=== PATIENT | male | born 1950 | race Caucasian/White ===

== ENCOUNTER 2018-08-13 15:42 | Emergency (ER) | payer MEDICARE, BC ==
[2018-08-13 15:55] VITALS: BP 115/78
[2018-08-13] MEDS ORDERED: Diltiazem 50 MG/10 ML SDV IVPUSH STA (16:33)
[2018-08-13] MEDS ORDERED: Rivaroxaban 10 MG Tab PO STA (16:35)
--- NOTE | 2018-08-13 16:38 | EDM.PDOC ---
ED HPI GENERAL MEDICAL PROBLEM - General Chief Complaint: Chest Pain Stated Complaint: TIGHTNESS IN CHEST Time Seen by Provider: 08/13/18 16:18 Source of Information: Reports: Patient, RN Notes Reviewed History Limitations: Reports: No Limitations - History of Present Illness INITIAL COMMENTS - FREE TEXT/NARRATIVE: The patient states that he has been experiencing chest tightness and dyspnea on and off since Sunday morning, 08/11/2018. He reports palpitations, sensing that his heart has been going faster, them returning to normal, then going faster, etc. He has felt diaphoretic, but denies associated nausea or sense of impending doom. No orthopnea. No recent cough. No recent fever, however, he states that he felt chilled last night. The patient states that his symptoms are similar, although not exactly the same , as when he had atrial fibrillation twice in 2016. At the time, his atrial fibrillation was thought to be due to hyperthyroidism. He received I-131 treatment, causing him to become hypothyroid, for which he now takes levothyroxine. The patient's PCP is Dr. Nance. Chest Pain Score (Numeric/FACES): 5 - Related Data Allergies Allergy/AdvReac Type Severity Reaction Status Date / Time morphine Allergy Confusion Verified 12/22/15 01:05 Home Meds: Home Meds Levothyroxine Sodium 137 mcg PO QAM 08/13/18 [History] Meloxicam 15 mg PO DAILY PRN 08/13/18 [History] amLODIPine [Norvasc] 5 mg PO DAILY 08/13/18 [History] sulfaSALAzine 500 mg PO BID 08/13/18 [History] Past Medical History HEENT History: Reports: Impaired Vision Other HEENT History: Wears glasses Cardiovascular History: Reports: Afib (paroxysmal), High Cholesterol, Hypertension Musculoskeletal History: Reports: Osteoarthritis Endocrine/Metabolic History: Reports: Hypothyroidism Hematologic History: Reports: Blood Transfusion(s) Oncologic (Cancer) History: Reports: Malignant Melanoma - Infectious Disease History Infectious Disease History: Reports: Chicken Pox, Measles, Mumps - Past Surgical History HEENT Surgical History: Reports: Tonsillectomy Musculoskeletal Surgical History: Reports: Hip Replacement (bilateral) Oncologic Surgical History: Reports: Other (See Below) (melanoma excised off face) Social & Family History - Family History Family Medical History: Noncontributory Cardiac: Reports: High Cholesterol, Hypertension Other Cardiac Family History: brother and mother had multiple heart surgeries Respiratory: Reports: None OBGYN: Reports: None Musculoskeletal: Reports: None Neurological: Reports: None Psychiatric: Reports: None Endocrine/Metabolic: Reports: None Hematologic: Reports: None Immunologic: Reports: None Dermatologic: Reports: None Oncologic: Reports: None - Tobacco Use Smoking Status *Q: Former Smoker Years of Tobacco use: 29 Packs/Tins Daily: 0.8 Month/Year Tobacco Last Used: Quite around 1979 Second Hand Smoke Exposure: No - Caffeine Use Caffeine Use: Reports: None - Alcohol Use Alcohol Use History: Yes Alcohol Use Frequency: Socially - Recreational Drug Use Recreational Drug Use: No - Living Situation & Occupation Living situation: Reports: , with Spouse Occupation: Employed (Semi-retired car sales) ED ROS GENERAL - Review of Systems Review Of Systems: ROS reveals no pertinent complaints other than HPI. ED EXAM, GENERAL - Physical Exam Exam: See Below Exam Limited By: No Limitations General Appearance: Alert, WD/WN, No Apparent Distress Eye Exam: Bilateral Eye: EOMI, Normal Inspection Ears: Normal External Exam, Hearing Grossly Normal Nose: Normal Inspection Throat/Mouth: Normal Inspection, Normal Lips, Normal Voice, No Airway Compromise Head: Atraumatic, Normocephalic Neck: Normal Inspection, Full Range of Motion Respiratory/Chest: No Respiratory Distress, Lungs Clear, Normal Breath Sounds, No Accessory Muscle Use Cardiovascular: Normal Peripheral Pulses, No Edema, No Gallop, No JVD, No Murmur , No Rub, Tachycardia, Irregularly Irregular Peripheral Pulses: 4+: Radial (L), Radial (R) GI/Abdominal: Normal Bowel Sounds, Soft, Non-Tender, No Organomegaly, No Distention, No Abnormal Bruit, No Mass (Male) Exam: Deferred Rectal (Males) Exam: Deferred Back Exam: Normal Inspection, Full Range of Motion, NT Extremities: Normal Inspection, Normal Range of Motion, No Pedal Edema, Normal Capillary Refill Neurological: Alert, Oriented, Normal Cognition, No Motor/Sensory Deficits Psychiatric: Normal Affect Skin Exam: Warm, Intact, Normal Color, No Rash, Diaphoretic EKG INTERPRETATION EKG Date: 08/13/18 Time: 15:50 Rhythm: A-Fib Rate (Beats/Min): 139 [place]: LAD-Left [place] Deviation (2 LAFB) P-Wave: Absent QRS: Normal ST-T: Normal (Late transition) QT: Normal (QTc 470 ms) Comparison: No Change (10/19/2015) Course - Vital Signs Last Recorded V/S: Last Vital Signs Temp 36.8 C 08/13/18 15:51 Pulse 143 H 08/13/18 15:51 Resp 23 H 08/13/18 15:51 BP 115/78 08/13/18 15:51 Pulse Ox 92 L 08/13/18 15:51 - Orders/Labs/Meds Orders: Active Orders 24 hr Category Date Time Status EKG Documentation Completion [RC] ASDIRECTED Care 08/13/18 16:10 Active EKG 12 Lead [EK] Stat Ther 08/13/18 16:10 Ordered Labs: Laboratory Tests 08/13/18 08/13/18 08/13/18 Range/Units 15:56 15:56 15:56 WBC 7.48 (4.23-9.07) K/mm3 RBC 4.86 (4.63-6.08) M/mm3 Hgb 14.5 (13.7-17.5) gm/L Hct 44.0 (40.1-51.0) % MCV 90.5 (79.0-92.2) fl MCH 29.8 (25.7-32.2) pg MCHC 33.0 (32.2-35.5) g/dl RDW Std Deviation 49.3 H (35.1-43.9) fL Plt Count 272 (163-337) K/mm3 MPV 12.4 H (9.4-12.3) fl Neut % (Auto) 74.2 H (34.0-67.9) % Lymph % (Auto) 10.7 L (21.8-53.1) % [place] % (Auto) 13.6 H (5.3-12.2) % Eos % (Auto) 0.8 (0.8-7.0) Baso % (Auto) 0.4 (0.1-1.2) % Neut # (Auto) 5.55 H (1.78-5.38) K/mm3 Lymph # (Auto) 0.80 L (1.32-3.57) K/mm3 [place] # (Auto) 1.02 H (0.30-0.82) K/mm3 Eos # (Auto) 0.06 (0.04-0.54) K/mm3 Baso # (Auto) 0.03 (0.01-0.08) K/mm3 PT 10.9 (9.5-12.1) SECONDS INR 1.00 Sodium 139 (136-145) mEq/L Potassium 3.8 (3.5-5.1) mEq/L Chloride 103 (98-107) mEq/L Carbon Dioxide 24 (21-32) mEq/L Anion Gap 15.8 H (5-15) BUN 17 (7-18) mg/dL Creatinine 1.0 (0.7-1.3) mg/dL Est Cr Clr Drug Dosing 68.40 mL/min Estimated GFR (MDRD) > 60 (>60) mL/min BUN/Creatinine Ratio 17.0 (14-18) Glucose 125 H (80-115) mg/dL Calcium 9.8 (8.5-10.1) mg/dL Magnesium 1.8 (1.8-2.4) mg/dl Total Bilirubin 0.4 (0.2-1.0) mg/dL AST 20 (15-37) U/L ALT 27 (16-63) U/L Alkaline Phosphatase 98 (46-116) U/L CK-MB (CK-2) < 0.5 (0-3.6) ng/ml Troponin I 0.087 H* (0.00-0.056) ng/mL Total Protein 7.8 (6.4-8.2) g/dl Albumin 3.5 (3.4-5.0) g/dl Globulin 4.3 gm/dL Albumin/Globulin Ratio 0.8 L (1-2) TSH 3rd Generation (0.358-3.74) uIU/mL 08/13/18 Range/Units 15:56 WBC (4.23-9.07) K/mm3 RBC (4.63-6.08) M/mm3 Hgb (13.7-17.5) gm/L Hct (40.1-51.0) % MCV (79.0-92.2) fl MCH (25.7-32.2) pg MCHC (32.2-35.5) g/dl RDW Std Deviation (35.1-43.9) fL Plt Count (163-337) K/mm3 MPV (9.4-12.3) fl Neut % (Auto) (34.0-67.9) % Lymph % (Auto) (21.8-53.1) % [place] % (Auto) (5.3-12.2) % Eos % (Auto) (0.8-7.0) Baso % (Auto) (0.1-1.2) % Neut # (Auto) (1.78-5.38) K/mm3 Lymph # (Auto) (1.32-3.57) K/mm3 [place] # (Auto) (0.30-0.82) K/mm3 Eos # (Auto) (0.04-0.54) K/mm3 Baso # (Auto) (0.01-0.08) K/mm3 PT (9.5-12.1) SECONDS INR Sodium (136-145) mEq/L Potassium (3.5-5.1) mEq/L Chloride (98-107) mEq/L Carbon Dioxide (21-32) mEq/L Anion Gap (5-15) BUN (7-18) mg/dL Creatinine (0.7-1.3) mg/dL Est Cr Clr Drug Dosing mL/min Estimated GFR (MDRD) (>60) mL/min BUN/Creatinine Ratio (14-18) Glucose (80-115) mg/dL Calcium (8.5-10.1) mg/dL Magnesium (1.8-2.4) mg/dl Total Bilirubin (0.2-1.0) mg/dL AST (15-37) U/L ALT (16-63) U/L Alkaline Phosphatase (46-116) U/L CK-MB (CK-2) (0-3.6) ng/ml Troponin I (0.00-0.056) ng/mL Total Protein (6.4-8.2) g/dl Albumin (3.4-5.0) g/dl Globulin gm/dL Albumin/Globulin Ratio (1-2) TSH 3rd Generation 6.130 H (0.358-3.74) uIU/mL Meds: Medications Discontinued Medications Generic Name Dose Route Start Last Admin Trade Name Freq PRN Reason Stop Dose Admin Diltiazem HCl 5 mg 08/13/18 16:33 08/13/18 16:47 Cardizem IVPUSH 03/26/19 16:34 5 mg ONETIME STA Administration Diltiazem HCl 125 mg/ Sodium 125 mls @ 10 mls/hr 08/13/18 16:45 08/13/18 16: 49 Chloride IV 10 mg/hr TITRATE ANGELICA 10 mls/hr Administration Protocol 10 MG/HR Rivaroxaban 20 mg 08/13/18 16:35 08/13/18 16:46 Xarelto PO 08/13/18 16:36 20 mg ONETIME STA Administration - Re-Assessments/Exams Free Text/Narrative Re-Assessment/Exam: 08/13/18 16:37 The patient's ECG demonstrates atrial fibrillation with RVR at 139 BPM. I have ordered a Cardizem push plus drip, and will start the patient on Xarelto. 08/13/18 16:40 Portable chest radiograph reviewed. The cardiac silhouette appears to be at the upper limits of normal, but there is no pulmonary vascular congestion or pleural effusions to suggest decompensated CHF. No focal infiltrate. No pneumothorax. Formal read per the Radiologist pending. 08/13/18 17:42 The patient's troponin has returned mildly elevated at 0.087. This is most likely related to the atrial fibrillation with RVR, and does not represent an acute CA. The remainder of the patient's workup, including his CK-MB, is unremarkable. The patient's heart rate is currently 96. The patient requires admission to the hospital, however, there are no ICU beds available at this facility. 08/13/18 17:58 Case discussed with Reena at [facility], at 17:55. She will have the Hospitalist Dr. Baldwin call me back when he is available. 08/13/18 18:25 Called back by the Hospitalist Dr. Jarrell and the Staff Electronic Warfare Officer Dr. Choi at 18: 14. Dr. Choi agreed that the patient should be transferred to their facility. He recommended conversion from Xarelto to IV heparin tomorrow, then, based on the results of further troponin levels, either a stress test or cardiac catheterization. The patient will be transported by ground ambulance. Departure - Departure Time of Disposition: 18:27 Disposition: DC/Tfer to [facility] 02 Reason for Transfer *Q: Other Condition: Fair Clinical Impression: Atrial fibrillation with rapid ventricular response, Elevated troponin Referrals: Yuriy Nance MD [Primary Care Provider] - - My Orders Last 24 Hours: My Active Orders 08/13/18 16:10 EKG Documentation Completion [RC] ASDIRECTED EKG 12 Lead [EK] Stat - Assessment/Plan Last 24 Hours: My Active Orders 08/13/18 16:10 EKG Documentation Completion [RC] ASDIRECTED EKG 12 Lead [EK] Stat
[2018-08-13] MEDS ORDERED: Diltiazem 125 MG in Sodium Chloride 0.9% 100 ML IV SCH (16:45)
--- NOTE | 2018-08-14 06:42 | CR ---
Chest: Portable view of the chest was obtained. Comparison: Prior chest x-ray 12/21/15. Heart is mildly enlarged. Tortuous thoracic aorta is noted. Lungs are clear with no acute parenchymal change. Bony structures are grossly intact. Impression: 1. Nothing acute is seen on portable chest x-ray. Diagnostic code #2
== END 2018-08-13 22:25 ==
LOC: JD.ED 15:42
DX: I48.91 Unspecified atrial fibrillation (principal); R79.89 Other specified abnormal findings of blood chemistry; I10 Essential (primary) hypertension; E03.9 Hypothyroidism, unspecified; Z79.899 Other long term (current) drug therapy; Z98.890 Other specified postprocedural states; Z87.891 Personal history of nicotine dependence; Z88.5 Allergy status to narcotic agent
CPT/HCPCS: 36415; 71045; 80053; 82553; 83735; 84443; 84484; 85025; 85610; 93005; 96365; 96366; 99285; A9270; J3490; J7030; 93010